=== PATIENT | male | born 1950 | race Caucasian/White ===

== ENCOUNTER → 2017-10-10 | Outpatient (CLI) | payer OTHER ==
[~2017-10-10] MED LIST: KEFLEX500 M1 PO; KEFLEX500 MG PO; VICODIN 5/500 505 MG PO
== END | disposition home or self-care (01) ==
LOC: US 09:15
DX: K76.0 Fatty (change of) liver, not elsewhere classified (principal)

== ENCOUNTER 2023-01-04 17:38 | Emergency (ER) | payer MEDICARE ==
[~2023-01-04] VITALS: Ht 182.8 cm; Wt 96.6 kg
[2023-01-04] MEDS ORDERED: NAPROXEN250 MG PO (19:09)
== END 2023-01-04 19:14 | disposition home or self-care (01) ==
LOC: ED 17:38
DX: S40.011A Contusion of right shoulder, initial encounter (principal); Z79.2 Long term (current) use of antibiotics; V68.5XXA Driver of heavy transport vehicle injured in noncollision transport accident in traffic accident, initial encounter; Y93.I9 Activity, other involving external motion; Y92.488 Other paved roadways as the place of occurrence of the external cause; Y99.8 Other external cause status

== ENCOUNTER 2025-03-29 11:33 | Emergency (ER) | payer MEDICARE ==
[~2025-03-29 11:33] MED LIST changes: +Amiodarone Hydrochloride 150 MG/3 ML VIAL IV ONE; +CALCIUM CHLORIDE 1 GM/10 ML SYR IV ONE; +EPINEPHrine Hydrochloride 1 MG/10 ML SYR IV ONE; +Lidocaine Hydrochloride 100 MG/5 ML SYR IV ONE; +NAPROXEN250 MG PO; +SODIUM BICARBONATE 50 MEQ/50 ML SYR IV ONE
[2025-03-29] MEDS ORDERED: Amiodarone Hydrochloride 150 MG,IV 1 EA in DEXTROSE 5% 100 ML IV ONE (11:50)
[2025-03-29] MEDS ORDERED: Amiodarone Hydrochloride 900 MG in DEXTROSE 5% 500 ML IV ONE (11:55)
[2025-03-29] MEDS ORDERED: Amiodarone Hydrochloride 900 MG in DEXTROSE 5% 500 ML IV SCH (12:00)
[2025-03-29] MEDS ORDERED: MAGNESIUM SULFATE 50 ML IV ONE ×2 (12:00→12:21)
[2025-03-29] MEDS ORDERED: SODIUM CHLORIDE 0.9% 1,000 ML IV ONE ×2 (12:00→12:23)
[2025-03-29] MEDS ORDERED: MAGNESIUM SULFATE 1 GM/2 ML VIAL IV ONE (12:10)
[2025-03-29] MEDS ORDERED: CALCIUM GLUCONATE 1 GM/10 ML VIAL ONE (12:16)
== END 2025-03-29 15:31 ==
LOC: ED 11:33
DX: I46.9 Cardiac arrest, cause unspecified (principal); E11.9 Type 2 diabetes mellitus without complications; Z87.442 Personal history of urinary calculi